=== PATIENT | male | born 1955 | race Caucasian/White ===

== ENCOUNTER 2016-12-10 19:43 | Emergency (ER) | payer MEDICAID, OTHER ==
[~2016-12-10] VITALS: Ht 177.8 cm; Wt 99.8 kg
--- NOTE | 2016-12-10 20:15 | NUR ---
PATIENT C/O RIGHT FLANK PAIN WITH PAIN UPON URINATION X2 WEEKS, PT IS ALERT, ORIENTED X 4, NO RESP DISTRESS NOTED OR REPORTED UPON ASSESSMENT, MD AT BEDSIDE...
[2016-12-10 20:54] LABS: *BILIRUBIN,URIN NEGATIVE (NEGATIVE); *BLOOD, URINE NEGATIVE (NEGATIVE); *CLARITY,URINE CLEAR (CLEAR); *COLOR,URINE YELLOW (YELLOW); *KETONES,URINE NEGATIVE (NEGATIVE); *PROTEIN,URINE NEGATIVE (NEGATIVE); LEUKOCYTE ESTERASE ,URINE NEGATIVE (NEGATIVE); NITRITE, URINE NEGATIVE (NEGATIVE); UGLUCOSE NEGATIVE (NEGATIVE)
[2016-12-10 21:02] LABS: CALCIUM OXALATE CRYSTALS,UR MODERATE /HPF (NONE SEEN); MUCUS,URINE MANY /LPF (0-FEW); WBC,URINE 0-3 /HPF (0-3)
[2016-12-10 21:30] LABS: BASOPHILS % (AUTO) 0.5 % (0.0-2.0); EOSINOPHILS # (AUTO) 0.3 K/uL (0.0-0.7); HEMATOCRIT 41.9 % (40-50); LYMPHOCYTES # (AUTO) 2.3 K/UL (0.8-4.8); LYMPHOCYTES % (AUTO) 23.3 % (20.5-51.5); MEAN CORPUSCULAR HEMOGLOBIN 31.2 UUG (27.0-31.0); MEAN CORPUSCULAR HGB CONC 34 g/dL (32.0-37.0); MEAN CORPUSCULAR VOLUME 93.1 FL (82.0-92.0); MONOCYTES # (AUTO) 0.8 K/UL (0.1-1.30); MONOCYTES % (AUTO) 8.2 % (0.0-11.0); NEUTROPHILS # (AUTO) 6.4 K/UL (1.8-8.9); PLATELET COUNT (AUTO) 375 K/UL (150-450); WHITE BLOOD COUNT (AUTO) 9.8 K/UL (4.0-11.2)
[2016-12-10 21:34] LABS: CREATININE 0.7 mg/dL (0.6-1.3); POTASSIUM 4.2 mmol/L (3.5-5.1)
[2016-12-10 21:40] LABS: BILIRUBIN,DIRECT 0.1 mg/dL (0.0-0.2); BILIRUBIN,TOTAL 0.4 mg/dL (0.2-1.0)
--- NOTE | 2016-12-10 23:22 | NUR ---
Patient discharged to home in stable conditon. Written and verbal after care instructions given. Patient verbalizes understanding of instructions. pt walked out of ER unassisted with belongings at side...
[2016-12-10 23:23] VITALS: BP 121/78
== END 2016-12-10 23:25 | disposition home or self-care (01) ==
LOC: ER 19:45
DX: R39.11 Hesitancy of micturition (principal); N20.0 Calculus of kidney; K57.90 Diverticulosis of intestine, part unspecified, without perforation or abscess without bleeding; F32.9 Major depressive disorder, single episode, unspecified; F41.9 Anxiety disorder, unspecified; F17.200 Nicotine dependence, unspecified, uncomplicated
CPT/HCPCS: 36415; 74176; 80048; 80076; 81001; 83690; 85025; 99285; A4663

== ENCOUNTER 2017-03-21 13:25 | Emergency (ER) | payer OTHER ==
[~2017-03-21] VITALS: Ht 177.8 cm; Wt 81.6 kg
--- NOTE | 2017-03-21 13:42 | NUR ---
PT IS IN ROOM #1B. EVALUATED THE PT.
[2017-03-21] MEDS ORDERED: TRAMADOL HCL 50 MG TABLET PO ONE (14:15)
[2017-03-21] MEDS ORDERED: TRAMADOL HCL 50 MG TABLET ONE (14:38)
--- NOTE | 2017-03-21 15:41 | NUR ---
PT WAS D/C TO HOME. D/C INSTRUCTIONS GIVEN TO THE PT.
[2017-03-21 15:42] VITALS: BP 141/82
== END 2017-03-21 15:43 | disposition home or self-care (01) ==
LOC: ER 13:30
DX: S06.0X0A Concussion without loss of consciousness, initial encounter (principal); F17.200 Nicotine dependence, unspecified, uncomplicated; Z88.0 Allergy status to penicillin; Z88.5 Allergy status to narcotic agent; F41.9 Anxiety disorder, unspecified; V19.3XXA Pedal cyclist (driver) (passenger) injured in unspecified nontraffic accident, initial encounter; Y93.89 Activity, other specified; Y92.413 State road as the place of occurrence of the external cause; Y99.8 Other external cause status
CPT/HCPCS: 70450; 99284; A4663

== ENCOUNTER 2017-08-30 13:11 | Emergency (ER) | payer OTHER ==
[~2017-08-30] VITALS: Ht 177.8 cm; Wt 77.1 kg
[2017-08-30] MEDS ORDERED: KETOROLAC TROMETHAMINE 15 MG INJ IVP ONE (14:15)
[2017-08-30] MEDS ORDERED: IV NORMAL SALINE 1000 ML BAG IV ONE (14:15)
[2017-08-30] MEDS ORDERED: ONDANSETRON 4 MG/2 ML VIAL IV ONE (14:15)
[2017-08-30] MEDS ORDERED: PANTOPRAZOLE SODIUM 40 MG VIAL IV ONE (14:15)
[2017-08-30] MEDS ORDERED: PANTOPRAZOLE SODIUM 40 MG VIAL ONE (14:34)
[2017-08-30] MEDS ORDERED: ONDANSETRON 4 MG/2 ML VIAL ONE (14:34)
[2017-08-30] MEDS ORDERED: KETOROLAC TROMETHAMINE 15 MG INJ ONE (14:34)
[2017-08-30 14:54] LABS: BASOPHILS # (AUTO) 0.1 K/uL (0.0-8.0); BASOPHILS % (AUTO) 1.1 % (0.0-2.0); EOSINOPHILS # (AUTO) 0.3 K/uL (0.0-0.7); EOSINOPHILS % (AUTO) 4.5 % (0.0-7.0); HEMATOCRIT 50.3 % (36.7-47.1); HEMOGLOBIN 17.3 g/dL (12.5-16.3); LYMPHOCYTES # (AUTO) 2.2 K/uL (20.0-40.0); LYMPHOCYTES % (AUTO) 29.6 % (20.5-51.5); MEAN CORPUSCULAR HEMOGLOBIN 31.2 uug (23.8-33.4); MEAN CORPUSCULAR HGB CONC 34 g/dL (32.5-36.3); MEAN CORPUSCULAR VOLUME 90.7 fL (73.0-96.2); MONOCYTES # (AUTO) 0.6 K/uL (2.0-10.0); NEUTROPHILS # (AUTO) 4.2 K/uL (1.8-8.9); NEUTROPHILS % (AUTO) 56.8 % (38.5-71.5); PLATELET COUNT (AUTO) 300 K/uL (152-348); RED BLOOD CELL COUNT(AUTO) 5.54 MIL/uL (4.06-5.63); WHITE BLOOD COUNT (AUTO) 7.3 K/uL (3.6-10.2)
[2017-08-30 14:57] LABS: CREATININE 0.8 mg/dL (0.6-1.3); POTASSIUM 4.3 mmol/L (3.5-5.1)
[2017-08-30 15:03] LABS: BILIRUBIN,DIRECT 0.1 mg/dL (0.0-0.2); BILIRUBIN,TOTAL 0.6 mg/dL (0.2-1.0); TOTAL PROTEIN, SERUM 8.1 g/dL (6.4-8.2)
--- NOTE | 2017-08-30 16:15 | NUR ---
Patient discharged to home in stable conditon. Written and verbal after care instructions given. Patient verbalizes understanding of instructions.
[2017-08-30 16:18] VITALS: BP 118/78
== END 2017-08-30 16:18 | disposition home or self-care (01) ==
LOC: ER 13:13
DX: A08.4 Viral intestinal infection, unspecified (principal); F17.210 Nicotine dependence, cigarettes, uncomplicated; Z88.0 Allergy status to penicillin; Z88.5 Allergy status to narcotic agent; E86.0 Dehydration
CPT/HCPCS: 36415; 80048; 80076; 83690; 85025; 93005; 96361; 96374; 96375; 99285; A4663; C9113; J1885; J2405

== ENCOUNTER 2017-09-11 23:21 | Inpatient (IN) | payer OTHER ==
[~2017-09-11] VITALS: Ht 177.8 cm; Wt 78.9 kg
--- NOTE | 2017-09-12 00:31 | NUR ---
DR MARY LUNSFORD MD AT [facility] FOR MSE.
[2017-09-12] MEDS ORDERED: ACETAMINOPHEN ES 500 MG TABLET PO ONE (00:45)
[2017-09-12] MEDS ORDERED: IV NORMAL SALINE 1000 ML BAG IV ONE ×2 (01:00→02:30)
--- NOTE | 2017-09-12 01:12 | NUR ---
LAB AT BEDSIDE FOR BLOOD DRAW.
[2017-09-12 01:21] LABS: BASOPHILS # (AUTO) 0.1 K/uL (0.0-8.0); BASOPHILS % (AUTO) 0.2 % (0.0-2.0); HEMATOCRIT 45.9 % (36.7-47.1); HEMOGLOBIN 15.8 g/dL (12.5-16.3); LYMPHOCYTES # (AUTO) 1.9 K/uL (20.0-40.0); LYMPHOCYTES % (AUTO) 6.3 % (20.5-51.5); MEAN CORPUSCULAR HEMOGLOBIN 30.7 uug (23.8-33.4); MEAN CORPUSCULAR HGB CONC 35 g/dL (32.5-36.3); MEAN CORPUSCULAR VOLUME 89.1 fL (73.0-96.2); MONOCYTES # (AUTO) 2.8 K/uL (2.0-10.0); MONOCYTES % (AUTO) 9.6 % (0.0-11.0); NEUTROPHILS # (AUTO) 24.8 K/uL (1.8-8.9); NEUTROPHILS % (AUTO) 83.9 % (38.5-71.5); PLATELET COUNT (AUTO) 258 K/uL (152-348); RED BLOOD CELL COUNT(AUTO) 5.15 MIL/uL (4.06-5.63); WHITE BLOOD COUNT (AUTO) 29.6 K/uL (3.6-10.2)
[2017-09-12 01:29] LABS: CREATININE 1.1 mg/dL (0.6-1.3); POTASSIUM 3.8 mmol/L (3.5-5.1)
[2017-09-12 01:42] LABS: BILIRUBIN,DIRECT 0.4 mg/dL (0.0-0.2); BILIRUBIN,TOTAL 1.7 mg/dL (0.2-1.0); TOTAL PROTEIN, SERUM 7.9 g/dL (6.4-8.2)
[2017-09-12 01:52] LABS: *BILIRUBIN,URIN NEGATIVE (NEGATIVE); *BLOOD, URINE 1+ (NEGATIVE); *COLOR,URINE YELLOW (YELLOW); *KETONES,URINE 1+ (NEGATIVE); *PROTEIN,URINE 2+ (NEGATIVE); LEUKOCYTE ESTERASE ,URINE 1+ (NEGATIVE); NITRITE, URINE POSITIVE (NEGATIVE); PH,URINE 8.5 (5.0-8.0); UGLUCOSE NEGATIVE (NEGATIVE)
[2017-09-12 02:03] LABS: *CLARITY,URINE EH677437 (CLEAR); BACTERIA,URINE MANY /HPF (NONE SEEN); WBC,URINE 50-80 /HPF (0-3)
[2017-09-12 02:04] LABS: SQUAMOUS EPITHELIAL CELL,UR FEW /HPF (NONE SEEN)
--- NOTE | 2017-09-12 02:20 | NUR ---
CODE SEPSIS ACTIVATED.
[2017-09-12] MEDS ORDERED: ACETAMINOPHEN ES 500 MG TABLET ONE (02:29)
[2017-09-12] MEDS ORDERED: CEFTRIAXONE 1 G VIAL ONE (02:29)
[2017-09-12] MEDS ORDERED: CEFTRIAXONE 1 G in IV DEXTROSE 5% 50 ML IV ONE (02:30)
[2017-09-12] MEDS ORDERED: GENTAMICIN SULFATE 20 MG/2 ML VIAL IV ONE (02:30)
[2017-09-12] MEDS ORDERED: VANCOMYCIN IV 1,000 MG in IV DEXTROSE 5% 250 ML IV ONE (02:30)
[2017-09-12] MEDS ORDERED: GENTAMICIN SULFATE 80 MG/2 ML VIAL ONE (02:34)
--- NOTE | 2017-09-12 03:50 | NUR ---
PT RESTING IN BED W/ EYES CLOSED. NO ACUTE DISTRESS NOTED.
[2017-09-12] MEDS ORDERED: VANCOMYCIN IV 200 ML ONE (04:25)
--- NOTE | 2017-09-12 05:30 | NUR ---
SEPSIS AFTER FLUID REASSESSMENT AND ALL ANTIBIOTICS COMLETED.
--- NOTE | 2017-09-12 05:37 | NUR ---
REPORT GIVEN TO RISSA ROSARIO.
[2017-09-12 06:00] VITALS: BP 109/72
[2017-09-12] MEDS ORDERED: ZOLPIDEM 5 MG TABLET PO PRN (06:00)
[2017-09-12] MEDS ORDERED: ONDANSETRON 4 MG/2 ML VIAL IV PRN (06:00)
[2017-09-12] MEDS ORDERED: MAGNESIUM HYDROXIDE 30 ML LIQUID UDC PO PRN (06:00)
[2017-09-12] MEDS ORDERED: ACETAMINOPHEN 325 MG TABLET PO PRN (06:00)
--- NOTE | 2017-09-12 06:00 | NUR ---
Received pt to TELE floor. Belongings checked. No skin issues noted except for scratches on left arm. Pt is ambulatory and can use the bathroom on his own. Oriented pt to the unit and use of call light. Bed locked and in low position with side rails up x2. Awaiting MD orders at this time.
--- NOTE | 2017-09-12 06:10 | NUR ---
Pt. admitted to TELE, under care of CH[facility]. Belongs List completed
[2017-09-12] MEDS: IV NS 1000 ML 1,000 ML IV PRN ×2 (06:16→23:49)
[2017-09-12 07:21] LABS: BASOPHILS # (AUTO) 0.2 K/uL (0.0-8.0); BASOPHILS % (AUTO) 0.7 % (0.0-2.0); HEMOGLOBIN 14.3 g/dL (12.5-16.3); LYMPHOCYTES % (AUTO) 7.3 % (20.5-51.5); MEAN CORPUSCULAR HEMOGLOBIN 30.8 uug (23.8-33.4); MEAN CORPUSCULAR HGB CONC 34 g/dL (32.5-36.3); MEAN CORPUSCULAR VOLUME 90.3 fL (73.0-96.2); MONOCYTES # (AUTO) 2.7 K/uL (2.0-10.0); NEUTROPHILS # (AUTO) 22.2 K/uL (1.8-8.9); PLATELET COUNT (AUTO) 217 K/uL (152-348); RED BLOOD CELL COUNT(AUTO) 4.65 MIL/uL (4.06-5.63)
[2017-09-12 07:30] LABS: POTASSIUM 3.7 mmol/L (3.5-5.1)
--- NOTE | 2017-09-12 07:30 | NUR ---
resting well in bed no sob or pain continue ON IVF INFUSION WELL LT WRIST ON ASPIRATION AND FALL PRECAUTION BED ALARM ON AND CALL LIGHT IN REACH
--- NOTE | 2017-09-12 08:30 | NUR ---
EAT BREAKFAST WELL PO FLD EMMA MOD AMT IV LEAKING ON LEFT WRIST CHANGE TO RT HAND INFUSION WELL VOIDING OK ON ASPIRATION /FALL PRECAUTION BED ALARM ON AND CALL LIOGHT IN REACH
[2017-09-12 10:19] LABS: BAND % (MANUAL) 5 % (0-10); LYMPHOCYTES % (MANUAL) 5 % (20-40); MONOCYTES % (MANUAL) 10 % (2-10); NEUTROPHILS % (MANUAL) 80 % (42-75)
[2017-09-12] MEDS: HYDROCODONE/APAP 5-325MG TABLET PO PRN ×3 (11:11→20:49)
[2017-09-12 11:38] VITALS: BP 97/55
[2017-09-12] MEDS: GENTAMICIN SULFATE IV SCH ×2 (11:42→20:11)
[2017-09-12] MEDS: DEXTROSE 5% IV SCH ×2 (11:42→20:11)
[2017-09-12] MEDS: VANCOMYCIN IV 1 G in PREMIXED 0 EACH IV SCH ×2 (12:19→23:57)
--- NOTE | 2017-09-12 14:53 | NUR ---
Clinical pharmacy note-Vancomycin and Gentamicin per pharmacy Subjective: To start Vancomycin and Gentamicin iv per pharmacy for suspected infection(No MD/ER note yet) Objective: BUN 17 Scr 1.0 WBC 27 Temp 98.4 Assessment/Plan: Vancomycin- patient had 1 gram in er today at 0230, will continue 1 gram iv every 11hrs(second dose today at 1300) and draw trough by 4th dose(ordered for tomorrow at 1030)for expected trough around 16. Gentamicin-patient had gentamicin in er today at 0300, will start Gentamicin 110mg IV every 8hrs(first dose today at 1200) and draw peak and trough by 4th dose(ordered for tomorrow 1200 dose). Expected peak 6 and trough 0.95. Will follow the level.
[2017-09-12 15:36] VITALS: BP 102/62
--- NOTE | 2017-09-12 17:00 | NUR ---
IV WAS ACCIDENT OUT ,WILL RESTART IT LATER EAT DINNER WELL STATE PAIN MEDICINE HELP TO RELIEF PAIN WELL
--- NOTE | 2017-09-12 17:30 | NUR ---
STABLE HEMODYNAMIC STATUS NO ACUTE DISTRESS PAIN UNDER CONTROL SAFETY MEASURE PROVIDED CALL LIGHT IN REACH AND REMIND TO CALL WHEN NEEDED
--- NOTE | 2017-09-12 19:40 | NUR ---
RECEIVED PATIENT IN BED, ALERT ORIENTED, NO SOB NO CHEST PAIN NOTED, CONT ON PAIN MANAGEMENT, RYTHM SINUS RYTHM. CONTINENT OF BLADDER AND BOWEL, USES URINAL, CALL LIGHT WITHIN REACH.
[2017-09-12 20:21] VITALS: BP 104/59
[2017-09-12 23:56] VITALS: BP 100/59
[2017-09-13 03:53] VITALS: BP 107/69
[2017-09-13] MEDS: DEXTROSE 5% IV SCH ×4 (04:19→20:37)
[2017-09-13] MEDS: GENTAMICIN SULFATE IV SCH ×4 (04:19→20:37)
--- NOTE | 2017-09-13 06:17 | NUR ---
PATIENT SLEPT MOST OF THE NIGHT NO SOB NO CHEST PAIN NOTED, RYTHN SINUS RYTHM AT THIS TIME.CONT ON PAIN MANAGEMENT, USES URINAL FOR BLADDER ELIMINATION, GAVE SNACKS PER REQUEST, CALL LIGHT WITHIN REACH.
[2017-09-13 07:12] LABS: BASOPHILS # (AUTO) 0.1 K/uL (0.0-8.0); BASOPHILS % (AUTO) 0.3 % (0.0-2.0); EOSINOPHILS # (AUTO) 0.3 K/uL (0.0-0.7); MONOCYTES # (AUTO) 1.9 K/uL (2.0-10.0)
[2017-09-13 07:20] LABS: CREATININE 0.8 mg/dL (0.6-1.3); MAGNESIUM 1.8 mg/dL (1.8-2.4); PHOSPHOROUS 2.5 mg/dL (2.5-4.9); POTASSIUM 3.8 mmol/L (3.5-5.1)
[2017-09-13 07:28] LABS: EOSINOPHILS % (AUTO) 1.9 % (0.0-7.0); HEMATOCRIT 41.1 % (36.7-47.1); HEMOGLOBIN 14.1 g/dL (12.5-16.3); LYMPHOCYTES # (AUTO) 1.8 K/uL (20.0-40.0); LYMPHOCYTES % (AUTO) 10.2 % (20.5-51.5); MEAN CORPUSCULAR HGB CONC 34 g/dL (32.5-36.3); MEAN CORPUSCULAR VOLUME 90.5 fL (73.0-96.2); NEUTROPHILS # (AUTO) 13.4 K/uL (1.8-8.9); NEUTROPHILS % (AUTO) 76.6 % (38.5-71.5); PLATELET COUNT (AUTO) 208 K/uL (152-348); RED BLOOD CELL COUNT(AUTO) 4.54 MIL/uL (4.06-5.63); WHITE BLOOD COUNT (AUTO) 17.4 K/uL (3.6-10.2)
--- NOTE | 2017-09-13 08:00 | NUR ---
AWAKE COOPERATE NO SOB OR PAIN ON FALL PRECAUTION CALL LIGHT IN REACH AND INSTRUCTION TO CALL WHEN NEED CONTINUE IVF INFUSION WELL RFA
[2017-09-13] MEDS: HYDROCODONE/APAP 5-325MG TABLET PO PRN ×3 (08:52→21:51)
--- NOTE | 2017-09-13 10:00 | NUR ---
DR CARDENAS SEE PATIENT AND LAB RESULT THIS AM ,ASSIST TO TAKE SHOWER THIS MORNING DOING WELL
[2017-09-13 11:24] VITALS: BP 102/63
[2017-09-13] MEDS: IV NS 1000 ML 1,000 ML IV PRN ×2 (11:38→20:40)
--- NOTE | 2017-09-13 14:23 | NUR ---
Clinical pharmacy note-Gentamicin per pharmacy Subjective: To continue Gentamicin IV for this 62 yo male patient for UTI Objective: BUN 14 Scr 0.8 WBC 17.4 Temp 98.6 Gent trough level: 0.6 Gent peak level: 4.6 ht 177.8 cm wt 78.9 kg UC + GNR pending sens Assessment/Plan: Will continue same dose of gentamicin 110mg IV every 8hrs for today. Pharmacy shall check urine culture sens in am & de-escalate if able. Will follow the level.
[2017-09-13 15:29] VITALS: BP 109/55
--- NOTE | 2017-09-13 17:30 | NUR ---
STABLE HEMODYNAMIC STATUS ,PAIN UNDER CONTROL ,CONTINUE IVF NO ACUTE DISTRESS SAFETY MEASURE PROVIDED CALL LIGHT WITHIN REACH AND REMIND TO CALL WHEN NEED TELE SR/ST OCCASSIONALLY SOME ANXIETY STATE WANT TO SMOKE BUT REFUSED TO HAVE NICOTIN PATCH ON
[2017-09-13 20:00] VITALS: BP 117/80
--- NOTE | 2017-09-13 20:00 | NUR ---
Pt in room alert awake in no acute distress. Pt awaiting transfer information. No reaction to recent IV atb medication. buckle strap puncher showing sinus rhythm at this time. Vital signs are WNL. Will continue to monitor. Call light placed within reach.
--- NOTE | 2017-09-13 23:36 | NUR ---
SPOKE WITH LICENSED BONDSMAN MIKEY FROM [facility] STATING THEY HAVE A BED READY FOR PT. PT TO BE TRANSFERRED TO [facility] IN ROOM 5549 TELEMETRY. REPORT GIVEN TO NURSE AMBER. PT MADE AWARE AND SIGNED CONSENT READY FOR TRANSFER. [facility] WAS NOTIFIED AND STATED EARLIEST PICK WILL BE 0230. WILL CONTINUE TO MONITOR. PT IN NO ACUTE DISTRESS. ALL DOCUMENTS PREPARED AT THIS TIME.
[2017-09-14] VITALS: BP 110/69
--- NOTE | 2017-09-14 01:00 | NUR ---
Pt's cafeteria monitor showing sinus rhythm. Pt in no acute distress. Awaiting transfer at this time for ambulance. Refuses to wear cafeteria monitor at this time and states he will leave soon. Will continue to monitor.
--- NOTE | 2017-09-14 03:37 | NUR ---
PT TRANSFERRED [facility]IA [facility]. SPOKE WITH EMT DARIN. PT STABLE AT THIS TIME. DOCUMENTS AND BELONGINGS TAKEN.
== END 2017-09-14 03:56 | disposition short-term general hospital (02) | DRG 720 ==
LOC: ER 23:24 → TELE 09-12 05:50
PROVIDERS: ADMIT Nurse Practitioner Acute Care; ATTEND Internal Medicine
DX: A41.9 Sepsis, unspecified organism (principal); G92 Toxic encephalopathy; E86.0 Dehydration; F17.210 Nicotine dependence, cigarettes, uncomplicated; Z59.0 Homelessness; N39.0 Urinary tract infection, site not specified; B96.20 Unspecified Escherichia coli [E. coli] as the cause of diseases classified elsewhere; R53.1 Weakness
CPT/HCPCS: 36415; 70030-TC; 71045; 83605; 83735; 84100; 85025; 85730; 87040; 87077; 87086; 93005; A4663; A9150; J0696; J1580; J3370; J7030; J7040; J7060

== ENCOUNTER 2018-02-14 16:30 | Emergency (ER) | payer OTHER ==
[~2018-02-14] VITALS: Ht 177.8 cm; Wt 77.1 kg
--- NOTE | 2018-02-14 17:19 | NUR ---
PT IS IN ROOM #2B, WAITING FOR DR HERNANDEZ EVALUATION.
[2018-02-14 18:21] LABS: BASOPHILS # (AUTO) 0.1 K/uL (0.0-8.0); BASOPHILS % (AUTO) 1.4 % (0.0-2.0); EOSINOPHILS # (AUTO) 0.3 K/uL (0.0-0.7); EOSINOPHILS % (AUTO) 4.2 % (0.0-7.0); HEMATOCRIT 46.8 % (36.7-47.1); HEMOGLOBIN 15.7 g/dL (12.5-16.3); LYMPHOCYTES # (AUTO) 2.6 K/uL (20.0-40.0); LYMPHOCYTES % (AUTO) 31.1 % (20.5-51.5); MEAN CORPUSCULAR HGB CONC 33 g/dL (32.5-36.3); MEAN CORPUSCULAR VOLUME 92.8 fL (73.0-96.2); MONOCYTES # (AUTO) 0.7 K/uL (2.0-10.0); MONOCYTES % (AUTO) 8.7 % (0.0-11.0); NEUTROPHILS # (AUTO) 4.5 K/uL (1.8-8.9); NEUTROPHILS % (AUTO) 54.6 % (38.5-71.5); PLATELET COUNT (AUTO) 330 K/uL (152-348); RED BLOOD CELL COUNT(AUTO) 5.05 MIL/uL (4.06-5.63); WHITE BLOOD COUNT (AUTO) 8.3 K/uL (3.6-10.2)
[2018-02-14 18:29] LABS: CREATININE 0.9 mg/dL (0.6-1.3); POTASSIUM 4.2 mmol/L (3.5-5.1)
[2018-02-14 18:34] LABS: BILIRUBIN,DIRECT 0.1 mg/dL (0.0-0.2); BILIRUBIN,TOTAL 0.7 mg/dL (0.2-1.0); TOTAL PROTEIN, SERUM 7.5 g/dL (6.4-8.2)
--- NOTE | 2018-02-14 18:41 | NUR ---
DR JONES EVALUATED THE PT.
--- NOTE | 2018-02-14 18:55 | NUR ---
REPORT GIVEN TO YOUTH PROGRAM DIRECTOR RN.
[2018-02-14] MEDS ORDERED: IV NORMAL SALINE 500 ML BAG IV ONE (19:15)
[2018-02-14] MEDS ORDERED: MORPHINE SULFATE 4 MG/1 ML DISP.SYRIN IV ONE (19:15)
[2018-02-14] MEDS ORDERED: ONDANSETRON 4 MG/2 ML VIAL IV ONE (19:15)
--- NOTE | 2018-02-14 19:51 | NUR ---
DOV speaking with Dr. Pierre regarding authorization for procedure.
[2018-02-14] MEDS ORDERED: ONDANSETRON 4 MG/2 ML VIAL ONE (20:01)
[2018-02-14] MEDS ORDERED: MORPHINE SULFATE 4 MG/1 ML DISP.SYRIN ONE (20:01)
--- NOTE | 2018-02-14 20:05 | NUR ---
Per patient, he did okay with Morphine.
--- NOTE | 2018-02-14 20:19 | NUR ---
Pt awake, alert, oriented x3. no sob noted. No s/sx of distress noted. Resp even and unlabored. C/O mid neck and lower back pain with every movement and rest x3 days and difficulty voiding and stooling x4 days. Hx of spinal fusion. Wanting to eat and drink. Made aware that MD wanted him to be NPO at this time. Unable to urinate at this time. Waiting for IV fluids to finish infusing before attempting to urinate. will cont to monitor. Call light within reach.
--- NOTE | 2018-02-14 20:23 | NUR ---
DOV speaking with Dr. Randhawa ([facility]).
--- NOTE | 2018-02-14 20:40 | NUR ---
[facility] - [phone]
[2018-02-14 21:04] LABS: *BILIRUBIN,URIN 1+ (NEGATIVE); *BLOOD, URINE NEGATIVE (NEGATIVE); *CLARITY,URINE CLEAR (CLEAR); *COLOR,URINE AMBER (YELLOW); *KETONES,URINE 1+ (NEGATIVE); *PROTEIN,URINE NEGATIVE (NEGATIVE); LEUKOCYTE ESTERASE ,URINE NEGATIVE (NEGATIVE); NITRITE, URINE NEGATIVE (NEGATIVE); PH,URINE 5.5 (5.0-8.0); UGLUCOSE NEGATIVE (NEGATIVE)
--- NOTE | 2018-02-14 21:10 | NUR ---
DOV talked to Dr Garcia, neurologist. Per Dr Garcia, patient can be trasfered to [facility] for admission.
[2018-02-14 21:12] LABS: MUCUS,URINE MANY /LPF (0-FEW); SQUAMOUS EPITHELIAL CELL,UR FEW /HPF (NONE SEEN)
--- NOTE | 2018-02-14 21:27 | NUR ---
DOV speaking with Dr. Gasca ([facility])
--- NOTE | 2018-02-14 22:20 | NUR ---
Updated patient with plan of care. Pt wanted to eat. Made patient aware that he is currently NPO per MD. Pt is upset. Reassured and comforted. Will cont to monitor.
--- NOTE | 2018-02-14 22:58 | NUR ---
Report given to RISSA Orozco
--- NOTE | 2018-02-14 23:08 | NUR ---
Pt ambulated to nurses' station to make a phonecall. Pt rand well. Will cont to monitor.
--- NOTE | 2018-02-14 23:40 | NUR ---
EMS at bedside to transport patient. Pt awake, alert, oriented x3. No sob noted. No s/sx of distress noted. Resp even and unlabored. Transported with 20g LFA and with all pt's belongings. Pt will leave bike on the premises. Son or Debara supposed to car pick up driver the bike. Pt took torres for bike lock with him.
--- NOTE | 2018-02-14 23:43 | NUR ---
Patient Tranfers to outside Facility Physician:Dr Gasca Location:[facility]
== END 2018-02-14 23:51 | disposition short-term general hospital (02) ==
LOC: ER 16:34
DX: G89.29 Other chronic pain (principal); M54.2 Cervicalgia; R53.1 Weakness; R32 Unspecified urinary incontinence; Z88.0 Allergy status to penicillin; Z88.5 Allergy status to narcotic agent
CPT/HCPCS: 36415; 72125; 80048; 80076; 81001; 83605; 83690; 84484; 85025; 85651; 85730; 87040 ×2; 87086; 96374; 96375; 99285; J2270; J2405; 70030-TC; A4663; C1758; J7030

== ENCOUNTER 2018-03-28 17:00 | Emergency (ER) | payer OTHER ==
[~2018-03-28] VITALS: Ht 177.8 cm; Wt 77.1 kg
--- NOTE | 2018-03-28 17:22 | NUR ---
Dr Lou at the bedside for MSE.
[2018-03-28] MEDS ORDERED: MORPHINE SULFATE 4 MG/1 ML DISP.SYRIN ONE (17:27)
[2018-03-28] MEDS ORDERED: MORPHINE SULFATE 2 MG/1 ML DISP.SYRIN ONE (17:28)
[2018-03-28] MEDS ORDERED: MORPHINE SULFATE 4 MG/1 ML DISP.SYRIN IM ONE (17:30)
[2018-03-28 17:53] VITALS: BP 116/90
--- NOTE | 2018-03-28 18:04 | NUR ---
Patient discharged to home in stable conditon. Written and verbal after care instructions given. Patient verbalizes understanding of instructions.
== END 2018-03-28 18:05 | disposition home or self-care (01) ==
LOC: ER 17:02
DX: G89.18 Other acute postprocedural pain (principal); M54.5 Low back pain; F17.200 Nicotine dependence, unspecified, uncomplicated; Z88.0 Allergy status to penicillin; Z88.5 Allergy status to narcotic agent
CPT/HCPCS: 96372; 99283; J2270 ×2; A4663

== ENCOUNTER 2018-10-08 08:28 | Emergency (ER) | payer OTHER ==
[~2018-10-08] VITALS: Ht 177.8 cm; Wt 77.1 kg
[2018-10-08 08:43] VITALS: BP 127/77
== END 2018-10-08 08:43 | disposition home or self-care (01) ==
LOC: ER 08:28
DX: R19.7 Diarrhea, unspecified (principal); F17.200 Nicotine dependence, unspecified, uncomplicated; Z88.5 Allergy status to narcotic agent; Z88.0 Allergy status to penicillin
CPT/HCPCS: A4663

== ENCOUNTER 2018-10-16 09:21 | Inpatient (IN) | payer OTHER ==
[~2018-10-16] VITALS: Ht 177.8 cm; Wt 77.1 kg
[2018-10-16] MEDS ORDERED: METOCLOPRAMIDE HCL 10 MG/2 ML VIAL ONE (10:28)
[2018-10-16] MEDS ORDERED: KETOROLAC TROMETHAMINE 15 MG INJ ONE (10:28)
[2018-10-16] MEDS ORDERED: IV NORMAL SALINE 1000 ML BAG IV ONE (10:30)
[2018-10-16] MEDS ORDERED: KETOROLAC TROMETHAMINE 15 MG INJ IV ONE (10:30)
[2018-10-16] MEDS ORDERED: METOCLOPRAMIDE HCL 10 MG/2 ML VIAL IV ONE (10:30)
--- NOTE | 2018-10-16 10:30 | NUR ---
Towels & adult diaper provided. Comfort & safety measures maintained.
[2018-10-16 10:42] LABS: BASOPHILS # (AUTO) 0.1 K/uL (0.0-8.0); BASOPHILS % (AUTO) 1.2 % (0.0-2.0); EOSINOPHILS # (AUTO) 0.3 K/uL (0.0-0.7); EOSINOPHILS % (AUTO) 3.9 % (0.0-7.0); HEMATOCRIT 47.5 % (36.7-47.1); HEMOGLOBIN 15.7 g/dL (12.5-16.3); LYMPHOCYTES # (AUTO) 1.7 K/uL (20.0-40.0); LYMPHOCYTES % (AUTO) 21.2 % (20.5-51.5); MEAN CORPUSCULAR HEMOGLOBIN 29.8 uug (23.8-33.4); MEAN CORPUSCULAR HGB CONC 33 g/dL (32.5-36.3); MEAN CORPUSCULAR VOLUME 90.5 fL (73.0-96.2); MONOCYTES # (AUTO) 0.6 K/uL (2.0-10.0); NEUTROPHILS # (AUTO) 5.2 K/uL (1.8-8.9); NEUTROPHILS % (AUTO) 65.7 % (38.5-71.5); PLATELET COUNT (AUTO) 317 K/uL (152-348); RED BLOOD CELL COUNT(AUTO) 5.25 MIL/uL (4.06-5.63); WHITE BLOOD COUNT (AUTO) 7.9 K/uL (3.6-10.2)
[2018-10-16 10:50] LABS: CREATININE 0.8 mg/dL (0.6-1.3); POTASSIUM 4.4 mmol/L (3.5-5.1)
[2018-10-16 10:55] LABS: BILIRUBIN,DIRECT 0.1 mg/dL (0.0-0.2); BILIRUBIN,TOTAL 0.5 mg/dL (0.2-1.0); TOTAL PROTEIN, SERUM 7.3 g/dL (6.4-8.2)
[2018-10-16] MEDS ORDERED: IOHEXOL 300MG/ML 100 ML INFUS..BTL ONE (11:29)
[2018-10-16] MEDS ORDERED: IV NORMAL SALINE 250 ML IV ONE (11:29)
[2018-10-16] MEDS ORDERED: SWABABLE VALVE TRANSFER SET EA MC ONE (11:29)
--- NOTE | 2018-10-16 12:01 | NUR ---
Patient is resting comfortably on gurney with eyes closed. No diarrhea episodes seen since arriving our ER department. PATIENT IS PAIN FREE AT THIS TIME.
--- NOTE | 2018-10-16 12:50 | NUR ---
KAYTA Romero is at bedside evaluating patient.
--- NOTE | 2018-10-16 13:00 | NUR ---
Patient is now for transfer to 3rd floor med-surgical floor, pending admitting papers from [facility].
[2018-10-16] MEDS ORDERED: IV NS 1000 ML 1,000 ML IV PRN (13:35)
[2018-10-16] MEDS ORDERED: Z GUARD REMEDY PASTE 57 GM TUBE TOP PRN (13:45)
[2018-10-16] MEDS ORDERED: HYDROCODONE/APAP 5-325MG TABLET PO PRN (13:45)
[2018-10-16] MEDS ORDERED: MORPHINE SULFATE 2 MG/1 ML DISP.SYRIN IV PRN (13:45)
[2018-10-16] MEDS ORDERED: ACETAMINOPHEN 325 MG TABLET PO PRN (13:45)
[2018-10-16] MEDS ORDERED: MAGNESIUM HYDROXIDE 30 ML LIQUID UDC PO PRN (13:45)
[2018-10-16] MEDS ORDERED: ONDANSETRON 4 MG/2 ML VIAL IV PRN (13:45)
[2018-10-16] MEDS ORDERED: TEMAZEPAM 15 MG CAPSULE PO PRN (13:45)
[2018-10-16] MEDS ORDERED: PIPERACILLIN/TAZOBACTAM/D5W 3.375 G in PREMIXED 1 EACH IV SCH (14:00)
[2018-10-16 14:30] LABS: *BILIRUBIN,URIN NEGATIVE (NEGATIVE); *BLOOD, URINE NEGATIVE (NEGATIVE); *CLARITY,URINE CLEAR (CLEAR); *COLOR,URINE YELLOW (YELLOW); *KETONES,URINE NEGATIVE (NEGATIVE); *UROBILINOGEN,URINE 0.2 E.U./dl (NORMAL); LEUKOCYTE ESTERASE ,URINE NEGATIVE (NEGATIVE); NITRITE, URINE NEGATIVE (NEGATIVE); PH,URINE 5.5 (5.0-8.0); UGLUCOSE NEGATIVE (NEGATIVE)
--- NOTE | 2018-10-16 14:37 | NUR ---
Pt. admitted to telemetry under the care of Nick Mayberry NP Belongings List completed
[2018-10-16 14:39] VITALS: BP 122/77
--- NOTE | 2018-10-16 14:40 | NUR ---
PATIENT RECEIVED FROM ED BY W/CHAIR TO ROOM 214 WITH DX OF DIVERTICULITIS PLACED INTO BED FIXED AND MADE COMFORTABLE PATIENT IS ALERT AND ORIENTED ORIENTED TO ROOM AND FACILITY PROTOCOL PAT RUCKER HERE AND AWARE STATED WILL PLACE ORDERS.HAS A HEPLOCK RIGHT HAND PATENT WITH NO S/S OF INFILTERATION AT THIS TIME NO DIARRHEA NOTED MADE COMFORTABLE.
[2018-10-16] MEDS ORDERED: MEROPENEM 1 G in IV NORMAL SALINE 100 ML IV SCH (15:00)
--- NOTE | 2018-10-16 16:30 | NUR ---
PER THE SOLDER SPRAYER PATIENT IS CAPITATED TO [facility] SO AWAITING FOR AVAILABILITY OF BED AND ACCEPTING DOCTOR.
--- NOTE | 2018-10-16 17:15 | NUR ---
CALL RECEIVED FROM THE [facility]ER STATED THAT DR CHEEK IS ACCEPTING THE PATIENT CALLED [facility] AND REPORT GIVEN TO REMSEN FOR CONTINUING CARE AWAITING TO SEE WHICH AMBULANCE WILL TRANSPORT THE PATIENT.PATIENT AWARE AND SIGNED THE TRANSFER ACKNOWLEDGEMENT.
[2018-10-16 17:58] LABS: BILIRUBIN,DIRECT 0.1 mg/dL (0.0-0.2); BILIRUBIN,TOTAL 0.5 mg/dL (0.2-1.0); TOTAL PROTEIN, SERUM 7.3 g/dL (6.4-8.2)
[2018-10-16 17:59] LABS: BILIRUBIN,DIRECT 0.1 mg/dL (0.0-0.2); BILIRUBIN,TOTAL 0.5 mg/dL (0.2-1.0)
--- NOTE | 2018-10-16 20:13 | NUR ---
Received patient resting in bed, easily to arouse. No signs of acute distress noted. No complaints of pain or SOB, patient on room air saturating at 100% IVF running on the right hand. Patient able to make needs known. Reminded patient that he will be transferred to [facility]. Spoke to Geri from med response at 7:40PM with an ETA of 30 min. Safety measures initiated. Bed is low and locked, call light within reach. Will continue to monitor.
--- NOTE | 2018-10-16 20:30 | NUR ---
Patient was picked up by EMT to transfer to [facility]. Patient left in stable condition. All belongings given to patient and discharge instructions and report was given to EMT. Patient left with IV in right hand and was intact and patent.
[2018-10-19 03:09] LABS: HEPATITIS A AB, IgM Negative (Negative); HEPATITIS B SURFACE AG Negative (Negative)
== END 2018-10-16 20:30 | disposition short-term general hospital (02) | DRG 244 ==
LOC: ER 09:23 → MEDSURG3 13:56
PROVIDERS: ADMIT Nurse Practitioner Acute Care; ATTEND Nurse Practitioner Acute Care
DX: K57.32 Diverticulitis of large intestine without perforation or abscess without bleeding (principal); N28.1 Cyst of kidney, acquired; F17.210 Nicotine dependence, cigarettes, uncomplicated; Z87.440 Personal history of urinary (tract) infections; M51.37 Other intervertebral disc degeneration, lumbosacral region; K82.8 Other specified diseases of gallbladder; Z59.0 Homelessness; F41.9 Anxiety disorder, unspecified; G89.29 Other chronic pain; Z88.6 Allergy status to analgesic agent; Z88.0 Allergy status to penicillin; Z98.1 Arthrodesis status
CPT/HCPCS: 36415; 70030-TC; 71045; 83690; 85025; 86705; 86709; 86803; 87340; 93005; A4663; G0378; J1885; J2185; J2765; J3490; J7030; J7050; Q9967

== ENCOUNTER 2020-09-26 20:25 | Inpatient (IN) | payer MEDICAID, OTHER ==
[~2020-09-26] VITALS: Ht 175.3 cm; Wt 81.7 kg
[2020-09-26] MEDS ORDERED: IV NS 1000 ML 1,000 ML IV ONE (20:30)
[2020-09-26] MEDS ORDERED: ONDANSETRON 4 MG/2 ML VIAL IV ONE (20:30)
--- NOTE | 2020-09-26 20:36 | NUR ---
MD Reaves at bedside
--- NOTE | 2020-09-26 20:40 | NUR ---
Patient walked into ER from home c/o N/V, diaphorectic, chills that started 3hrs prior to arrival. Patient states about 4hrs ago he took Rhino (male enhancement) to have intercourse with his girlfriend. Pt. hypertensive with tachycardia. MD aware. Pt. denies dizziness, chest pain, cardiac hx. Pt. A&Ox4. 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
[2020-09-26] MEDS ORDERED: LORAZEPAM 2 MG/1 ML VIAL IV ONE ×2 (20:45→23:15)
[2020-09-26] MEDS ORDERED: ONDANSETRON 4 MG/2 ML VIAL ONE ×2 (20:48→22:05)
[2020-09-26] MEDS ORDERED: LORAZEPAM 2 MG/1 ML VIAL ONE (20:49)
[2020-09-26] MEDS ORDERED: ONDANSETRON ODT 4 MG TAB.RAPDIS SL ONE (21:00)
[2020-09-26 21:37] LABS: BASOPHILS # (AUTO) 0.1 K/uL (0.0-8.0); BASOPHILS % (AUTO) 0.9 % (0.0-2.0); EOSINOPHILS # (AUTO) 0.2 K/uL (0.0-0.7); EOSINOPHILS % (AUTO) 1.4 % (0.0-7.0); HEMATOCRIT 51.9 % (36.7-47.1); HEMOGLOBIN 17.9 g/dL (12.5-16.3); LYMPHOCYTES # (AUTO) 2.1 K/uL (20.0-40.0); LYMPHOCYTES % (AUTO) 16.9 % (20.5-51.5); MEAN CORPUSCULAR HEMOGLOBIN 31.7 uug (23.8-33.4); MEAN CORPUSCULAR HGB CONC 35 g/dL (32.5-36.3); MEAN CORPUSCULAR VOLUME 91.9 fL (73.0-96.2); MONOCYTES # (AUTO) 0.7 K/uL (2.0-10.0); MONOCYTES % (AUTO) 5.7 % (0.0-11.0); NEUTROPHILS # (AUTO) 9.1 K/uL (1.8-8.9); NEUTROPHILS % (AUTO) 75.1 % (38.5-71.5); PLATELET COUNT (AUTO) 349 K/uL (152-348); RED BLOOD CELL COUNT(AUTO) 5.65 MIL/uL (4.06-5.63); WHITE BLOOD COUNT (AUTO) 12.2 K/uL (3.6-10.2)
[2020-09-26 21:44] LABS: CREATININE 0.8 mg/dL (0.6-1.3); POTASSIUM 4.8 mmol/L (3.5-5.1)
[2020-09-26 21:50] LABS: BILIRUBIN,DIRECT 0.1 mg/dL (0.0-0.2); BILIRUBIN,TOTAL 0.9 mg/dL (0.2-1.0); TOTAL PROTEIN, SERUM 9.2 g/dL (6.4-8.2)
[2020-09-26 23:22] LABS: *BILIRUBIN,URIN NEGATIVE (NEGATIVE); *CLARITY,URINE CLEAR (CLEAR); *COLOR,URINE YELLOW (YELLOW); *KETONES,URINE 1+ (NEGATIVE); LEUKOCYTE ESTERASE ,URINE NEGATIVE (NEGATIVE); NITRITE, URINE NEGATIVE (NEGATIVE); UGLUCOSE NEGATIVE (NEGATIVE)
[2020-09-26 23:29] LABS: *BLOOD, URINE TRACE (NEGATIVE)
[2020-09-26 23:30] LABS: BACTERIA,URINE NONE SEEN /HPF (NONE SEEN); SQUAMOUS EPITHELIAL CELL,UR NONE SEEN /HPF (NONE SEEN); WBC,URINE 0-3 /HPF (0-3)
[2020-09-26 23:40] LABS: *AMPHETAMINE, URINE POSITIVE (NEGATIVE); *CANNABINOID, URINE POSITIVE (NEGATIVE); *COCCAINE, URINE NEGATIVE (NEGATIVE); *OPIATE, URINE NEGATIVE (NEGATIVE); *PHENCYCLIDINE SCREEN,URINE NEGATIVE (NEGATIVE)
[2020-09-26] MEDS ORDERED: PHENTOLAMINE MESYLATE 5 MG VIAL IV ONE (23:45)
[2020-09-27] MEDS ORDERED: NICARDIPINE IN NS 200 ML IV ONE (00:15)
[2020-09-27] MEDS ORDERED: METOCLOPRAMIDE HCL 10 MG/2 ML VIAL IV ONE (00:30)
--- NOTE | 2020-09-27 00:30 | NUR ---
CT at bedside
--- NOTE | 2020-09-27 00:40 | NUR ---
Per Dr Reaves, Cardene drip will not be started at this time. Dr Reaves will observe patient first before starting Cardene drip.
--- NOTE | 2020-09-27 00:43 | NUR ---
Pt. taken to CT
[2020-09-27] MEDS ORDERED: IV NORMAL SALINE 250 ML IV ONE (00:52)
[2020-09-27] MEDS ORDERED: IOHEXOL 300MG/ML 100 ML INFUS..BTL ONE (00:52)
[2020-09-27] MEDS ORDERED: SWABABLE VALVE TRANSFER SET EA MC ONE (00:52)
--- NOTE | 2020-09-27 01:57 | NUR ---
Pt. resting in bed. BP remains elevated but Pt. denies chest pain, sob. Pt. A&Ox3. MD aware of elevated bp. Pt. ate jello and returned to sleep. Will continue to monitor.
--- NOTE | 2020-09-27 03:10 | NUR ---
Dr. Reaves on the phone w/ Dr. Jordan to admit pt. Called Khadijah for bed in telemetry.
[2020-09-27] MEDS ORDERED: LORAZEPAM 2 MG/1 ML VIAL IV ONE (03:15)
[2020-09-27] MEDS ORDERED: LORAZEPAM 2 MG/1 ML VIAL ONE (03:24)
--- NOTE | 2020-09-27 03:30 | NUR ---
Per Dr Reaves, Cardene drip will not be administered and or started. D/C'ed by Dr Reaves.
--- NOTE | 2020-09-27 03:33 | NUR ---
Report given to RISSA Bonner for continuity of care. Pt. to be admitted to tele unit. Addendum: 09/27/20 at 0338 by ANTWON Report given to RISSA Grady for continuity of care. Pt. to be admitted to tele unit.
[2020-09-27] MEDS ORDERED: IV NS 1000 ML 1,000 ML IV ONE (03:45)
[2020-09-27] MEDS: NICARDIPINE IN NS 200 ML IV PRN ×2 (03:46→03:48)
--- NOTE | 2020-09-27 04:35 | NUR ---
RECEIVED PT FROM ER VIA [facility]. UNDER THE CARE OF TRISTIN PLEITEZ DNP. PT ALERT AND ORIENTEDX2 AND UNCOOPERATIVE WHEN ANSWERING SOME QUESTIONS. ADMISSION PROCESS AND CARE PLAN INITIATED. PT OBSERVED TO HAVE OLD HEALED SCAR ON ABDOMEN AND SCAB ON FOREHEAD. SAFETY AND COMFORT PROVIDED. [facility] ASSESSMENT DONE. WILL CONTINUE TO MONITOR.
[2020-09-27 04:45] VITALS: BP 134/73
--- NOTE | 2020-09-27 05:40 | NUR ---
PT UNCOOPERATIVE AND REFUSING TO PUT HIS HEART MONITOR. PT PULLED OUT HIS IV ACCESS. WILL PUT ANOTHER ONE.
--- NOTE | 2020-09-27 05:51 | NUR ---
PT REFUSING TO PUT HIS GOWN ON.
[2020-09-27] MEDS ORDERED: ACETAMINOPHEN 325 MG TABLET PO PRN (06:30)
[2020-09-27] MEDS ORDERED: ONDANSETRON 4 MG/2 ML VIAL IV PRN (06:30)
[2020-09-27] MEDS ORDERED: Z GUARD REMEDY PASTE 57 GM TUBE TOP PRN (06:30)
[2020-09-27] MEDS ORDERED: MORPHINE SULFATE 2 MG/1 ML DISP.SYRIN IV PRN ×2 (06:30→08:02)
[2020-09-27] MEDS ORDERED: IV NORMAL SALINE 500 ML IV ONE (06:30)
[2020-09-27] MEDS ORDERED: LORAZEPAM 2 MG/1 ML VIAL IV PRN (06:30)
[2020-09-27] MEDS: LABETALOL HCL 100 MG TABLET PO SCH ×2 (06:54→20:58)
--- NOTE | 2020-09-27 07:26 | NUR ---
PT SLEPT INTERMITTENTLY. PT IN NO ACUTE DISTRESS. IV INTACT.PT UNCOOPERATIVE. PRESCRIBED MEDICATION GIVEN AND PT TOLERATED IT WELL. SAFETY AND COMFORT PROVIDED. WILL ENDORSE TO INCOMING NURSE FOR CONTINUITY OF CARE.
--- NOTE | 2020-09-27 07:35 | NUR ---
Received patient in bed no gown on. Attempted to put his gown on and talk to the patient but withdraws and does not want to be bothered. IV hydration ongoing and tolerated. No facial grimacing noted. No acute distress noted. Safety measures maintained. Bed low and locked. Kept comfortable. Will continue to monitor.
[2020-09-27] MEDS: IV NS 1000 ML 1,000 ML IV PRN ×2 (07:55→16:38)
[2020-09-27] MEDS: ENOXAPARIN SODIUM 40 MG/0.4 ML DISP.SYRIN SQ SCH (08:46)
--- NOTE | 2020-09-27 11:20 | NUR ---
Public Events Facilities Rental Manager Consultation: Public Events Facilities Rental Manager consultation requested for drug overdose. Patient is a 65 year old male. Per ED physician's notes, patient came to the ED in the early hours of 09/27/20 after reporting that he took a Rhino pill and had a bad reaction to it. This TERRITORY SUPERVISOR met with the patient in his hospital room. Patient was asleep, but easily arousable, and receptive to meeting with this TERRITORY SUPERVISOR. Patient is oriented x 4. Patient states that he lives with his girlfriend, Rohini. Patient lives at [address] [place] [address]. Patient reported that he took a Rhino pill last night, and had a bad reaction to it, experiencing vomiting, shortness of breath, and stomach ache. Patient stated that his girlfriend brought him to the ED. Patient reports that he has been using a wheelchair for mobility since June 2020, and that his girlfriend assists him with ADL's, as needed. Patient denies use of drugs and alcohol. Patient reports smoking 1 pack of cigarettes/day. Patient denies hx of mental illness. This TERRITORY SUPERVISOR assessed patient's psychosocial needs, and patient stated that he was fine and did not need any resources at this time. Discharge plans discussed, and patient stated that he will be returning home once he is discharged from the hospital. Patient was cooperative with this TERRITORY SUPERVISOR throughout this interview, however patient kept dosing off and TERRITORY SUPERVISOR had to call out his name to arouse him. Patient was easily arousable. Patient kept his eyes closed for most of the time, but provided appropriate responses to this TERRITORY SUPERVISOR. Patient's affect observed to be blunted. Thought process and content were appropriate. No hallucinations. Patient denied SI and HI. At this time, there is no need for further social work coordinator interventions. However social work coordinator will remain available, as needed.
[2020-09-27 11:25] VITALS: BP 134/79
--- NOTE | 2020-09-27 11:30 | NUR ---
Received call from Jose from [facility] said pt/significant other called them around 11pm last night. She was updated on patient's condition. She was appreciative.
[2020-09-27 16:05] VITALS: BP 128/71
--- NOTE | 2020-09-27 16:58 | NUR ---
Patient removed his iv line, refused reinsertion. Will try again later.
--- NOTE | 2020-09-27 18:41 | NUR ---
Patient resting easily arousable. In no acute distress. Denies pain. Still refused IV reinsertion. Charge nurse aware. Safety maintained. Kept comfortable. Will endorse accordingly.
[2020-09-27 20:05] VITALS: BP 152/94
[2020-09-28 04:05] VITALS: BP 121/79
--- NOTE | 2020-09-28 07:30 | NUR ---
received change of shift report. pt a/ox4, asleep in bed, easily arousable. on room air, no signs of distress, no reports of pain at this time. pt is ambulatory, IV access on the left wrist. bed low and locked, call light within reach, safety precautions in place, will continue with plan of care.
[2020-09-28 08:00] LABS: BASOPHILS # (AUTO) 0.1 K/uL (0.0-8.0); BASOPHILS % (AUTO) 1.3 % (0.0-2.0); EOSINOPHILS # (AUTO) 0.3 K/uL (0.0-0.7); EOSINOPHILS % (AUTO) 4.2 % (0.0-7.0); HEMATOCRIT 41.4 % (36.7-47.1); HEMOGLOBIN 14.2 g/dL (12.5-16.3); LYMPHOCYTES # (AUTO) 2.3 K/uL (20.0-40.0); LYMPHOCYTES % (AUTO) 29.9 % (20.5-51.5); MEAN CORPUSCULAR HEMOGLOBIN 31.8 uug (23.8-33.4); MEAN CORPUSCULAR HGB CONC 34 g/dL (32.5-36.3); MONOCYTES # (AUTO) 0.8 K/uL (2.0-10.0); MONOCYTES % (AUTO) 9.6 % (0.0-11.0); NEUTROPHILS # (AUTO) 4.3 K/uL (1.8-8.9); PLATELET COUNT (AUTO) 247 K/uL (152-348); RED BLOOD CELL COUNT(AUTO) 4.46 MIL/uL (4.06-5.63); WHITE BLOOD COUNT (AUTO) 7.9 K/uL (3.6-10.2)
[2020-09-28 08:10] LABS: CREATININE 0.7 mg/dL (0.6-1.3); MAGNESIUM 1.9 mg/dL (1.8-2.4); PHOSPHOROUS 2.9 mg/dL (2.5-4.9); POTASSIUM 3.9 mmol/L (3.5-5.1)
[2020-09-28 08:24] VITALS: BP 101/68
[2020-09-28 09:00] VITALS: BP 101/68
[2020-09-28] MEDS: LABETALOL HCL 100 MG TABLET PO SCH (09:00)
[2020-09-28] MEDS: ENOXAPARIN SODIUM 40 MG/0.4 ML DISP.SYRIN SQ SCH (09:00)
--- NOTE | 2020-09-28 11:35 | NUR ---
pt discharged home, pt ambulatory, steady gait, vitals within normal limits. IV access removed, ID band removed. pt a/ox4, pt on room air, no signs of distress, no reports of pain. Significant other notified of pt being dc'd, she will brick picker pt. Education and information regarding diagnoses and follow up care given to pt, pt verbalized understanding. Resources offered but pt refused to accept resources from geriatric social worker.
== END 2020-09-28 11:40 | disposition home or self-care (01) | DRG 812 ==
LOC: ER 20:25 → TELE3 09-27 04:09 → MEDSURG3 09-27 07:43
PROVIDERS: ADMIT Family Medicine; ATTEND Family Medicine
DX: T50.991A Poisoning by other drugs, medicaments and biological substances, accidental (unintentional), initial encounter (principal); D47.3 Essential (hemorrhagic) thrombocythemia; D72.829 Elevated white blood cell count, unspecified; F17.210 Nicotine dependence, cigarettes, uncomplicated; R00.0 Tachycardia, unspecified; F41.9 Anxiety disorder, unspecified; Z20.822 Contact with and (suspected) exposure to COVID-19; F32.9 Major depressive disorder, single episode, unspecified; Z88.0 Allergy status to penicillin; R74.01 Elevation of levels of liver transaminase levels; M54.9 Dorsalgia, unspecified; Y92.009 Unspecified place in unspecified non-institutional (private) residence as the place of occurrence of the external cause; T43.621A Poisoning by amphetamines, accidental (unintentional), initial encounter; T40.7X1A Poisoning by cannabis (derivatives), accidental (unintentional), initial encounter
CPT/HCPCS: 36415; 70030-TC; 70450; 83605; 83690; 83735; 84100; 84443; 85025; 87040; 93005; A4663; G0378; J1650; J2060; J2405; J2760; J2765; J7030; J7040; J7050; Q0162; Q9967

== ENCOUNTER 2022-02-22 14:36 | Emergency (ER) | payer OTHER ==
[~2022-02-22] VITALS: Ht 177.8 cm; Wt 79.4 kg
[2022-02-22] MEDS ORDERED: IBUP-1955 PO (16:01)
--- NOTE | 2022-02-22 16:21 | NUR ---
Patient discharged to home in stable condition. Written and verbal after care instructions given. Patient verbalizes understanding of instructions. Stressed follow up or return to ER for worsening s/s.
== END 2022-02-22 16:23 | disposition home or self-care (01) ==
LOC: ER 14:36
DX: S20.212A Contusion of left front wall of thorax, initial encounter (principal); V19.9XXA Pedal cyclist (driver) (passenger) injured in unspecified traffic accident, initial encounter; Y93.55 Activity, bike riding; Y92.89 Other specified places as the place of occurrence of the external cause; Z98.1 Arthrodesis status; Z88.0 Allergy status to penicillin
CPT/HCPCS: 71101; A4663